=== PATIENT | female | born 1980 | race Caucasian/White ===

== ENCOUNTER → 2023-12-07 14:37 | Outpatient (CLI) | payer OTHER, SELFPAY ==
[2023-12-07 16:54] LABS: Hematocrit 34.3 % (36-46); Mean Corpuscular Hemoglobin 31.4 PG (26-34); Mean Corpuscular Volume 89.8 fL (80-100); Platelet Count 221 X10^3/uL (150-400); Red Blood Cell Count 3.82 X10^6/uL (4.0-5.2); Red Cell Distribution Width 14.1 % (11.6-14.8); White Blood Cell Count 10.9 X10^3/uL (4.5-11.0)
[2023-12-07 17:41] LABS: HEMOLYSIS < 15 (0-50); Iron 113 ug/dL (37-170)
[2023-12-07 17:54] LABS: Percent Iron Saturation 30 % (15-50); Total Iron Binding Capacity 379 ug/dL (265-497)
[2023-12-07 17:59] LABS: Transferrin 300 mg/dL (206-381)
[2023-12-07 18:20] LABS: Ferritin 13 ng/mL (6-137)
[2023-12-07 18:26] LABS: HCG Quantitative /Beta subunit 74162 mIU/mL
[2023-12-07 21:10] LABS: Neutrophils Absolute Manual 9265 /uL (3000-5900); RBC Morphology Normal Morphology; Total Cells Counted 100
== END ==
PROVIDERS: PCP Family Medicine; Referring Provider Family Medicine; Visit Provider Family Medicine
DX: N91.2 Amenorrhea, unspecified (principal); D64.9 Anemia, unspecified
CPT/HCPCS: 36415; 82728; 83540; 83550; 84702; 85025

== ENCOUNTER → 2023-12-09 15:37 | Outpatient (CLI) | payer OTHER, SELFPAY ==
[2023-12-09 18:58] LABS: HCG Quantitative /Beta subunit 56263 mIU/mL
== END ==
LOC: LAB 15:38
PROVIDERS: PCP Family Medicine; Referring Provider Family Medicine; Visit Provider Family Medicine
DX: Z34.01 Encounter for supervision of normal first pregnancy, first trimester (principal)
CPT/HCPCS: 36415; 84702